=== PATIENT | female | born 1950 | race Caucasian/White ===

== ENCOUNTER 2016-12-22 05:56 | Inpatient (IN) | payer OTHER ==
[2016-12-21 10:50] VITALS: BMI 26.0
--- NOTE | 2016-12-21 18:03 | PREOPHP ---
DATE OF ADMISSION: 12/22/2016 HISTORY OF PRESENT ILLNESS: Ms. Mcneal is a 66-year-old female, 4, para 2, in menopause for m any years. She first came into the office on 10/19/2016 with her daughter. Daughter served as an i nterpreter, although does not speak good Hungarian. She complained of a uterine prolapse and a cystoc fariba that had been treated for many years with a rather large pessary. She could not use it anymore because the pessary would interfere with her daily life as well as creating chronic vaginitis and pe lvic pain. At that time, she was examined and found to have a large uterine prolapse and cystocele. She was counseled to have a total vaginal hysterectomy and anterior and posterior repair under gen eral anesthesia. This was done with the help of her daughter as an military cook. The alternatives t o this, the benefits from it, stopping the use of the pessary, the risks and complications of the pr ocedure were discussed including but not limited to hemorrhage, infection and pelvic organ injury du ring the procedure. She was allowed to ask questions and all her questions were answered to her sat isfaction, and she signed the appropriate surgical informed consent. She was seen for a second time preoperatively this week on 12/16/2016 and again the procedure was explained in detail through the same military cook and she signed the appropriate informed consent. She was made aware that there is a small possibility that the procedure could have complications and would end up with a total abdomi nal hysterectomy. PAST MEDICAL HISTORY: The patient had 4 pregnancies, 2 of which ended in normal vaginal deliveries. Her last menstrual period was at age 50. She denies any medical problems including cardiovascular disease, hypertension, diabetes and renal disease, liver disease, thyroid disease or neurological p roblems. ALLERGIES: NO KNOWN ALLERGIES. FAMILY HISTORY: Noncontributory. REVIEW OF SYSTEMS: A 12-point review of systems is noncontributory. PHYSICAL EXAMINATION: GENERAL: Well-developed and nourished, in no distress, alert and oriented x3 with a height 5 feet 9 inches and a weight of 170 pounds. BMI is 25.5. VITAL SIGNS: Showed the temperature to be 98, blood pressure 130/76, pulse is 78 per minute regular , respirations 16 per minute. HEENT: Within normal limits. Pupils are PERRLA. NECK: Supple. The thyroid is not palpable. There is no lymphadenopathy. BREASTS: Show no masses or lumps. LUNGS: Clear to percussion and auscultation. HEART: Normal sinus rhythm without a murmur. ABDOMEN: Soft. There is no organomegaly or hernias present. PELVIC: Normal external genitalia. There is a large prolapsed uterus with a normal cervix, large c ystocele grade III with preservation of the urethrovesical angle. There is a small rectocele presen t also. EXTREMITIES: Within normal limits. NEUROLOGIC: Also within normal limits. IMPRESSION: 1. Pelvic organ prolapse. 2. Uterine prolapse. 3. Cystocele, grade III. 4. Rectocele. PLAN: The patient is to be admitted for a total vaginal hysterectomy and possible bilateral salping o-oophorectomy, anterior and posterior repair tomorrow 12/22/2016. Dictated By: AVEL BROOKS MD CR/NTS Conf#: [id number] DID#: [id number] CC: PAM GODINEZ MD;*EndCC*
[~2016-12-22] VITALS: Ht 172.7 cm; Wt 78.5 kg
[2016-12-22] VITALS (26 sets, daily range): BP systolic 100–151; BP diastolic 50–81; PULSE 44–76; RESP 13–23; Ht 172.7 cm; Wt 78.5 kg
[2016-12-22] MEDS ORDERED: METO50TA16 PO (06:47)
[2016-12-22] MEDS ORDERED: HYD25 PO (06:47)
[2016-12-22] MEDS ORDERED: VASOPRESSIN 20 UNITS INJ ONE (06:49)
[2016-12-22] MEDS ORDERED: SODIUM CL BACTERIOSTATIC 30 ML INJ ONE (06:49)
[2016-12-22 06:58] LABS: ADD SCAN DIFF NO
[2016-12-22 07:00] LABS: BASOPHILS % 0.4 % (0.0-2.0); EOSINOPHILS # 0.2 10^3/ul (0.0-0.5); EOSINOPHILS % 3.2 % (0.0-7.0); HEMATOCRIT 37.8 % (37.0-47.0); HEMOGLOBIN 12.7 g/dl (12.0-16.0); LYMPHOCYTES # 2.2 10^3/ul (0.8-2.9); LYMPHOCYTES % 31.7 % (15.0-51.0); MEAN CORPUSCULAR HEMOGLOBIN 32.1 pg (29.0-33.0); MEAN CORPUSCULAR HGB CONC 33.6 g/dl (32.0-37.0); MEAN CORPUSCULAR VOLUME 95.5 fl (82.0-101.0); MEAN PLATELET VOLUME 10.9 fl (7.4-10.4); MONOCYTE # 0.5 10^3/ul (0.3-0.9); MONOCYTES % 7.3 % (0.0-11.0); NEUTROPHIL # 3.9 10^3/ul (1.6-7.5); NEUTROPHILS % 57.3 % (39.0-77.0); PLATELET COUNT 279 10^3/UL (140-415); RED BLOOD COUNT 3.96 10^6/ul (4.20-5.40); RED CELL DISTRIBUTION WIDTH 12.4 % (11.5-14.5); WHITE BLOOD COUNT 6.9 10^3/ul (4.8-10.8)
[2016-12-22] MEDS ORDERED: BUPIVACAINE 0.25%/EPI (SDV) 30 ML INJ ONE (07:21)
[2016-12-22 07:24] LABS: ALBUMIN 4.7 g/dl (3.3-4.9); ALBUMIN/GLOBULIN RATIO 1.62; BILIRUBIN,INDIRECT 0.5 mg/dl (0-1.1); BILIRUBIN,TOTAL 0.5 mg/dl (0.2-1.3); CALCIUM 9.9 mg/dl (8.4-10.2); CREATININE 0.72 mg/dl (0.44-1.00); POTASSIUM 3.7 mmol/L (3.5-5.1); TOTAL PROTEIN 7.6 g/dl (6.1-8.1)
[2016-12-22 07:27] LABS: PROTIME 13.2 Sec (12.2-14.2)
[2016-12-22 07:28] LABS: PARTIAL THROMBOPLASTIN TIME 26.4 Sec (25.0-35.0)
[2016-12-22] MEDS ORDERED: MIDAZOLAM 1 MG/ML 2 ML INJ ONE (07:42)
[2016-12-22] MEDS ORDERED: morphine SULFATE/PF (10 MG/10 ML) INJ ONE (07:47)
[2016-12-22] MEDS ORDERED: ROCURONIUM 50 MG INJ ONE (07:59)
[2016-12-22] MEDS ORDERED: CEFAZOLIN 1 GM INJ ONE (07:59)
[2016-12-22] MEDS ORDERED: PROPOFOL 20 ML ONE (07:59)
[2016-12-22] MEDS ORDERED: morphine 2 MG INJ IV PRN (08:30)
[2016-12-22] MEDS ORDERED: NALOXONE (0.4 MG/ML) INJ IV PRN (08:30)
[2016-12-22] MEDS ORDERED: HYDROCODONE/APAP (5/325) TAB PO PRN (08:30)
[2016-12-22] MEDS ORDERED: morphine 4 MG/ML VIAL IV PRN (08:30)
[2016-12-22] MEDS ORDERED: ACETAMINOPHEN 500 MG TAB PO PRN (08:30)
[2016-12-22] MEDS ORDERED: NALBUPHINE HCL (10 MG/1 ML) INJ IV PRN (08:30)
[2016-12-22] MEDS ORDERED: DIPHENHYDRAMINE 50 MG INJ IV PRN (08:30)
[2016-12-22] MEDS ORDERED: ONDANSETRON 4 MG INJ IV PRN ×2 (08:30→10:00)
[2016-12-22] MEDS ORDERED: FENTAnyl 50 MCG/ML VIAL ONE (08:30)
[2016-12-22] MEDS ORDERED: HYDROmorphONE 1 MG/ML SYG IV PRN ×2 (08:30)
[2016-12-22] MEDS ORDERED: KETOROLAC 30 MG INJ IV PRN ×2 (08:30→10:00)
[2016-12-22] MEDS ORDERED: KETOROLAC 30 MG INJ ONE (09:31)
[2016-12-22] MEDS ORDERED: ONDANSETRON 4 MG INJ ONE (09:31)
[2016-12-22] MEDS ORDERED: GLYCOPYRROLATE 1 MG INJ ONE (09:31)
[2016-12-22] MEDS ORDERED: NEOSTIGMINE 3 MG/3 ML SYRINGE ONE (09:31)
[2016-12-22] MEDS ORDERED: METOCLOPRAMIDE 10 MG INJ ONE (09:31)
[2016-12-22] MEDS ORDERED: DEXAMETHASONE 4 MG/ML 1 ML INJ ONE (09:31)
[2016-12-22] MEDS ORDERED: ACETAMINOPHEN 325 MG TAB PO PRN (10:00)
[2016-12-22] MEDS ORDERED: OXYCODONE/ACETAMINOPHEN (5/325) TAB PO PRN (10:00)
[2016-12-22] MEDS ORDERED: IBUPROFEN 600 MG TAB PO PRN (10:00)
--- NOTE | 2016-12-22 10:58 | OPR ---
DATE OF OPERATION: 12/22/2016 PREOPERATIVE DIAGNOSES: 1. Pelvic organ prolapse. 2. Uterine prolapse. 3. Cystocele grade III. 4. Small rectocele. POSTOPERATIVE DIAGNOSES: 1. Pelvic organ prolapse. 2. Uterine prolapse. 3. Cystocele grade III. 4. Small rectocele. OPERATION PERFORMED: Total vaginal hysterectomy, anterior repair. SURGEON: Avel Berumen MD. CONDUCTOR PULLMAN: Dr. Pam Justin ANESTHESIA: Spinal and general. ANESTHESIOLOGIST: Dr. Luna ESTIMATED BLOOD LOSS: Less than 100 mL. COMPLICATIONS: None. SPECIMENS: Uterus was sent to pathology. PROCEDURE AND FINDINGS: With the patient under general anesthesia and after spinal anesthesia, she was laid on the table in the dorsal lithotomy position. The abdomen was prepped with ChloraPrep and the perineum and vagina with Betadine. She was draped in the usual sterile fashion after 3 minutes. A weighted posterior retractor was placed in posterior vaginal wall and the anterior lip of the cervix grasped with a Terra clamp. A large cystocele present. There was inflammatory granulation tissue and the posterior fornix of the vagina, probably from the prolonged use of pessaries. The vaginal mucosa was infiltrated with 0.25% Marcaine with epinephrine, a total of 20 mL. Then it was opened circumferentially around the cervix. The endopelvic fascia was also opened circumferentially now with scissors. The posterior cul-de-sac of Lucio was entered. The weighted retractor was advanced. Uterosacral ligament on the right side was then clamped with a Terra clamp, cut and sutured with 0 Vicryl. The cardinal ligament was identified, clamped, and then cut and sutured with 0 Vicryl. The same was done on the contralateral side. The anterior peritoneum was entered and a right angle retractor was advanced into it. A very small fundus of the uterus was found with no pathology. The uterine pedicles were identified, clamped bilaterally with Wayne clamps, cut and sutured with 0 Vicryl. The upper pedicles consisted of the upper part of the broad ligament, the uterine ovarian ligament, the round ligament and the tube were then clamped with Wayne clamps bilaterally and the specimen was then removed. The upper pedicles were secured with 2 sutures of 0 Vicryl on either side. Good hemostasis was obtained. Pelvis was explored and the ovaries were found to be normal, atrophic and were left in situ. The peritoneum was closed with a pursestring of double 0 chromic catgut. This was done high in the cul-de -sac in order to avoid a future enterocele. Both uterosacral ligaments were then tied in the center for the same purpose. Then, the anterior repair was started by opening up the anterior vaginal mucosa in an inverted T fashion. The endopelvic fascia was dissected away from the mucosa. This was carried out to the urethrovesical angle,that was left intact. The cystocele was then reduced with several pursestring sutures of 0 Vicryl. The excessive vaginal mucosa was trimmed. Then, the mucosa was closed with a continuous running stitch of double 0 Vicryl. Good hemostasis was observed. The vagina was profusely washed with warm water. There was no active bleeding. All the instruments were then removed from the patient's vagina. Needle, sponge and instrument count at the end of the procedure was correct twice. The patient withstood the procedure well and was taken to recovery room. All vital signs stable. EBL was less 100 mL. Dictated By: AVEL FRANCOIS/JASWINDER Conf#: [id number] DID#: [id number] CC: PAM JUSTIN MD;*EndCC* MTDD
[2016-12-22] MEDS: LACTATED RINGER'S 1,000 ML IV SCH ×2 (12:21→22:36)
[2016-12-22 13:57] LABS: ADD UMIC NO; URINE BILIRUBIN (Dip) NEGATIVE (NEGATIVE); URINE BLOOD (Dip) NEGATIVE (NEGATIVE); URINE COLOR LT. YELLOW (YELLOW); URINE GLUCOSE (Dip) NEGATIVE (NEGATIVE); URINE KETONES (Dip) NEGATIVE (NEGATIVE); URINE LEUKOCYTE ESTERASE (Dip) NEGATIVE (NEGATIVE); URINE NITRITE (Dip) NEGATIVE (NEGATIVE); URINE TOTAL PROTEIN (Dip) NEGATIVE (NEGATIVE); URINE UROBILINOGEN (Dip) 0.2 E.U./dL (0.1-1.0)
[2016-12-22 14:01] LABS: ADD SCAN DIFF NO
[2016-12-22 14:02] LABS: BASOPHIL # 0.1 10^3/ul (0.0-0.1); BASOPHILS % 0.3 % (0.0-2.0); EOSINOPHILS % 0.1 % (0.0-7.0); HEMATOCRIT 38.2 % (37.0-47.0); HEMOGLOBIN 12.5 g/dl (12.0-16.0); LYMPHOCYTES # 1.1 10^3/ul (0.8-2.9); LYMPHOCYTES % 7.8 % (15.0-51.0); MEAN CORPUSCULAR HEMOGLOBIN 32.1 pg (29.0-33.0); MEAN CORPUSCULAR HGB CONC 32.7 g/dl (32.0-37.0); MEAN CORPUSCULAR VOLUME 97.9 fl (82.0-101.0); MEAN PLATELET VOLUME 10.2 fl (7.4-10.4); MONOCYTE # 0.2 10^3/ul (0.3-0.9); MONOCYTES % 1.5 % (0.0-11.0); PLATELET COUNT 272 10^3/UL (140-415); RED CELL DISTRIBUTION WIDTH 12.5 % (11.5-14.5); WHITE BLOOD COUNT 14.4 10^3/ul (4.8-10.8)
[2016-12-22] MEDS: CEFAZOLIN 2 GM/50 ML (PMX) 50 ML IVPB SCH ×2 (14:15→23:08)
[2016-12-22 14:54] LABS: ALANINE AMINOTRANSFERASE 31 IU/L (13-69); ALBUMIN 4.6 g/dl (3.3-4.9); ALBUMIN/GLOBULIN RATIO 1.84; ALKALINE PHOSPHATASE 76 IU/L (42-121); ANION GAP 9 (8-16); ASPARTATE AMINO TRANSFERASE 22 IU/L (15-46); BILIRUBIN,INDIRECT 0.4 mg/dl (0-1.1); BILIRUBIN,TOTAL 0.4 mg/dl (0.2-1.3); BLOOD UREA NITROGEN 11 mg/dl (7-20); CALCIUM 9.5 mg/dl (8.4-10.2); CARBON DIOXIDE 30 mmol/L (21-31); CHLORIDE 111 mmol/L (97-110); CREATININE 0.69 mg/dl (0.44-1.00); GLUCOSE 125 mg/dl (70-220); MAGNESIUM 1.8 mg/dl (1.7-2.5); PHOSPHORUS 4.1 mg/dl (2.5-4.9); SODIUM 145 mmol/L (135-144); TOTAL PROTEIN 7.1 g/dl (6.1-8.1)
[2016-12-22 14:58] LABS: TROPONIN-I < 0.012 ng/ml (0.00-0.12)
[2016-12-22 15:31] LABS: T3 UPTAKE 32.2 % (23.5-40.5)
--- NOTE | 2016-12-22 17:46 | RADRPT ---
Vent Rate: 45 bpm RR Interval: 0 msec OK Interval: 216 msec QRS Duration: 92 msec QT Interval: 500 msec QTC Interval: 432 msec P-R-T [place]: 49 - 32 - 65 degrees Marked sinus bradycardia with 1st degree AV block Abnormal ECG Electronically Signed By: Juanito Lew [id number]
--- NOTE | 2016-12-22 19:06 | PN ---
Date/Time of Note Date/Time of Note DATE: 12/22/16 TIME: 19:04 Assessment/Plan VTE Prophylaxis VTE Prophylaxis Intervention: other Lines/Catheters IV Catheter Type (from [facility]): Saline Lock Urinary Cath still in place: Yes Reason Cath still needed: other (indicate) Assessment/Plan Chief Complaint/Hosp Course [id number] a/p bradycardia s/p vaginal hysterectomy plan per order Problems: Subjective 24 Hr Interval Summary ENT: no complaints Respiratory: no complaints Cardiovascular: no complaints Gastrointestinal: no complaints Genitourinary: no complaints Skin: no complaints Exam/Review of Systems Vital Signs Vitals Vital Signs Date Time Temp Pulse Resp B/P Pulse Ox O2 Delivery O2 Flow Rate FiO2 12/22/16 16:00 59 12/22/16 15:13 Nasal Cannula 2.0 12/22/16 14:15 18 122/81 98 12/22/16 11:30 97.8 Exam Eyes: nl conjunctiva ENMT: nl external ears & nose Neck: supple Cardiovascular: regular rate and rhythm Gastrointestinal: bowel sounds, soft Musculoskeletal: nl extremities to inspection Extremities: normal pulses Results Result Diagram: 12/22/16 1355 12/22/16 1355 Results 24 hrs Laboratory Tests Test 12/22/16 06:25 12/22/16 09:48 12/22/16 13:55 White Blood Count 6.9 14.4 #H Red Blood Count 3.96 L 3.90 L Hemoglobin 12.7 12.5 Hematocrit 37.8 38.2 Mean Corpuscular Volume 95.5 97.9 Mean Corpuscular Hemoglobin 32.1 32.1 Mean Corpuscular Hemoglobin Concent 33.6 32.7 Red Cell Distribution Width 12.4 12.5 Platelet Count 279 272 Mean Platelet Volume 10.9 H 10.2 Neutrophils % 57.3 90.0 H Lymphocytes % 31.7 7.8 L Monocytes % 7.3 1.5 Eosinophils % 3.2 0.1 Basophils % 0.4 0.3 Nucleated Red Blood Cells % 0.0 0.0 Neutrophils # 3.9 13.0 H Lymphocytes # 2.2 1.1 Monocytes # 0.5 0.2 L Eosinophils # 0.2 0.0 Basophils # 0.0 0.1 Nucleated Red Blood Cells # 0.0 0.0 Prothrombin Time 13.2 Prothrombin Time Ratio 1.0 INR International Normalized Ratio 1.00 Activated Partial Thromboplast Time 26.4 Sodium Level 139 145 H Potassium Level 3.7 5.0 Chloride Level 107 111 H Carbon Dioxide Level 26 30 Anion Gap 10 9 Blood Urea Nitrogen 11 11 Creatinine 0.72 0.69 Glucose Level 97 125 Calcium Level 9.9 9.5 Total Bilirubin 0.5 0.4 Direct Bilirubin 0.00 0.00 Indirect Bilirubin 0.5 0.4 Aspartate Amino Transf (AST/SGOT) 22 22 Alanine Aminotransferase (ALT/SGPT) 32 31 Alkaline Phosphatase 79 76 Total Protein 7.6 7.1 Albumin 4.7 4.6 Globulin 2.90 2.50 Albumin/Globulin Ratio 1.62 1.84 Urine Color LT. YELLOW Urine Clarity CLEAR Urine pH 6.0 Urine Specific [place] <=1.005 L Urine Ketones NEGATIVE Urine Nitrite NEGATIVE Urine Bilirubin NEGATIVE Urine Urobilinogen 0.2 E.U./dL Urine Leukocyte Esterase NEGATIVE Urine Hemoglobin NEGATIVE Urine Glucose NEGATIVE Urine Total Protein NEGATIVE Phosphorus Level 4.1 Magnesium Level 1.8 Troponin I < 0.012 Free Thyroxine Index 2.32 Thyroxine (T4) 7.2 Triiodothyronine (T3) Uptake 32.2 Medications Medications Current Medications Hydromorphone HCl (Dilaudid) 0.2 mg Q2H PRN IV PAIN LEVEL 1-5; Start 12/22/16 at 08:30; Stop 12/23/16 at 07:32 Hydromorphone HCl (Dilaudid) 0.4 mg Q2H PRN IV PAIN LEVEL 6-10 Last administered on 12/22/16 09:58; Admin Dose 0.4 MG; Start 12/22/16 at 08:30; Stop 12/23/16 at 07:32 Morphine Sulfate (morphine) 2 mg Q2H PRN IV PAIN LEVEL 1-5; Start 12/22/16 at 08 :30; Stop 12/23/16 at 07:32 Morphine Sulfate (morphine) 4 mg Q2H PRN IV PAIN LEVEL 6-10; Start 12/22/16 at 08:30; Stop 12/23/16 at 07:32 Ketorolac Tromethamine (Toradol) 30 mg Q6H PRN IV PAIN LEVEL 6-10 Last administered on 12/22/16 09:57; Admin Dose 30 MG; Start 12/22/16 at 08:30; Stop 12/23/16 at 07:32 Acetaminophen (Tylenol Tab) 500 mg Q4H PRN PO PAIN LEVEL 1-3; Start 12/22/16 at 08:30; Stop 12/23/16 at 07:32 Acetaminophen/ Hydrocodone Bitart ([place] (5/325)) 1 tab Q4H PRN PO PAIN LEVEL 4 -6; Start 12/22/16 at 08:30; Stop 12/23/16 at 07:32 Diphenhydramine HCl (Benadryl) 25 mg Q4H PRN IV PRURITUS; Start 12/22/16 at 08: 30; Stop 12/23/16 at 07:32 Nalbuphine HCl (Nubain) 10 mg Q4H PRN IV PRURITUS; Start 12/22/16 at 08:30; Stop 12/23/16 at 07:32 Ondansetron HCl (Zofran Inj) 4 mg Q6H PRN IV NAUSEA AND/OR VOMITING; Start 12/22 at 08:30; Stop 12/23/16 at 07:32 Naloxone HCl 0.2 mg 0.2 mg Q2M PRN IV FOR RESP RATE 8 OR LESS; Start 12/22/16 at 08:30; Stop 12/23/16 at 07:32 Lactated Ringer's 1,000 ml @ 100 mls/hr Q10H IV Last administered on 12/22/16 12:21; Admin Dose 100 MLS/HR; Start 12/22/16 at 09:38 Cefazolin Sodium/ Dextrose (Ancef 2 Gm/50 ml (Pmx)) 50 ml @ 100 mls/hr Q8 IVPB Last administered on 12/22/16 14:15; Admin Dose 100 MLS/HR; Start 12/22/16 at 14:00; Stop 12/23/16 at 06:29 Acetaminophen (Tylenol Tab) 650 mg Q4H PRN PO PAIN LEVEL 1-5; Start 12/22/16 at 10:00 Oxycodone/ Acetaminophen (Percocet (5/ 325)) 1 tab Q4H PRN PO PAIN LEVEL 6-10; Start 12/22/16 at 10:00 Ondansetron HCl (Zofran Inj) 4 mg Q6H PRN IV NAUSEA AND/OR VOMITING; Start 12/22 at 10:00 Oxycodone/ Acetaminophen (Percocet (5/ 325)) 2 tab Q4H PRN PO PAIN; Start at 10:00 Pantoprazole (Protonix Iv) 40 mg DAILY@06 IV ; Start 12/23/16 at 06:00 Ketorolac Tromethamine (Toradol) 30 mg Q6H PRN IV PAIN; Start 12/22/16 at 10:00 ; Stop 12/25/16 at 09:59 Ibuprofen (Motrin) 600 mg Q8H PRN PO PAIN AND OR ELEVATED TEMP; Start 12/23/16 at 08:00 MADELYN GRANDE MD Dec 22, 2016 19:06
--- NOTE | 2016-12-22 19:43 | CONS ---
DATE OF ADMISSION: 12/22/2016 DATE OF CONSULTATION: Thank you, Dr. Berumen, for kindly asking me to see this patient in consultation. HISTORY OF PRESENT ILLNESS: The patient is a 66-year-old female who is 4, para 2, in menopause for many years. The patient has pelvic organ prolapse, uterine prolapse, cystocele grade III, rectocele, underwent total vaginal hysterectomy and possible bilateral salpingo-oophorectomy and anterior and posterior repair. The patient noted to have post-surgery bradycardia, so internal medicine consultation is obtained. The patient has EKG, shows currently that the patient has sinus bradycardia, first-degree AV block, heart rate 45. The patient is asymptomatic. PAST MEDICAL HISTORY: The patient has a history of hypertension, history of status post vaginal hysterectomy. ALLERGY HISTORY: NEGATIVE. FAMILY HISTORY: Per patient, negative. SOCIAL HISTORY: Per patient, negative. MEDICATIONS LISTED AT HOME: 1. Hydrochlorothiazide. 2. Metoprolol 50 mg daily. The patient has been taking intermittently. REVIEW OF SYSTEMS: HEENT: Unremarkable. RESPIRATORY: Unremarkable. CARDIOVASCULAR: Unremarkable. ABDOMEN: Abdominal pain. EXTREMITIES: Unremarkable. GENITOURINARY: Unremarkable. MUSCULOSKELETAL: Unremarkable. PHYSICAL EXAMINATION: GENERAL: The patient is awake and alert. VITAL SIGNS: Pulse 59, blood pressure 122/81. HEAD: Atraumatic, normocephalic. EYES: Pupils equal, reactive to light. NECK: Supple. No JVD. LUNGS: Clear. CARDIOVASCULAR: S1, S2 are normal. ABDOMEN: Soft, nontender. Bowel sounds positive. Tenderness in the abdominal area. The patient has surgical scar on the abdominal area. EXTREMITIES: There is no cyanosis, clubbing, edema. CENTRAL NERVOUS SYSTEM: The patient is awake, alert. No focal deficit. LABORATORY DATA: WBC 14.4, hematocrit 38.2, platelet count of 272. Potassium _ sodium 145. IMPRESSION: 1. The patient is status post total vaginal hysterectomy. 2. The patient has sinus bradycardia. 3. The patient has leukocytosis. 4. Rule out underlying hypothyroidism. PLAN: Give this patient IV fluid, telemetry monitoring, 2D echo, thyroid panel. Thank you, Dr. Edson Berumen, for kindly asking me to see this patient in medicine consultation. Dictated By: MADELYN MARTINEZ/JASWINDER Conf#: [id number] DID#: [id number] MTDD
--- NOTE | 2016-12-22 20:18 | RADRPT ---
Echocardiogram Report Patient Name: ARLETTE OSORIO Gender: Female Date: 1950 Study Date: 22-Dec-2016 Planer Operator: Henrique [facility] Location: 412-A Ref. Physician: MADELYN GRANDE Quality: Adequate Procedures: Transthoracic echocardiogram with complete 2D, M-Mode, and doppler examination. Indications: HR 44/MIN. 2D/M Mode Doppler Measurement Value Normal Ranges Measurement Value Normal Ranges LVIDd 2D 4.7 3.5 - 5.6 cm AV Peak Heilo 1.2 m/sec LVIDs 2D 3.0 2.1 - 4.1 cm AV Peak PG 6.1 mmHg LVPWd 2D 1.1 0.6 - 1.1 cm LVOT Peak Helio 1.2 m/sec IVSd 2D 1.1 0.6 - 1.1 cm LVOT Peak PG 5.8 mmHg AoR Diam 2D 2.6 2.0 - 3.7 cm MV E Peak Helio 0.9 m/sec EDV 2D 102.6 cm3 MV A Peak Helio 0.7 m/sec ESV 2D 27.6 cm3 MV E/A 1.2 LA Dimen 2D 3.8 2.3 - 4.0 cm MV Decel Time 288 msec MV Decel [place] 3 MV E/A 1.2 Findings Left Ventricle: Normal left ventricular systolic function. Normal left ventricular cavity size. Left ventricular wall thickness upper limits of normal. Ejection fraction is visually estimated at 5560 %. Tissue Doppler/Mitral Doppler indices are consistent with impaired relaxation (Stage I diastolic dysfunction). Right Ventricle: Normal right ventricular size. Normal right ventricular systolic function. Left Atrium: The left atrium is normal in size. Right Atrium: The right atrium is normal in size. Mitral Valve: Normal appearance of the mitral valve. Trace mitral regurgitation. Aortic Valve: Normal appearance of the aortic valve. No significant aortic stenosis or insufficiency. Tricuspid Valve: Normal appearance and function of the tricuspid valve with trace physiologic regurgitation. Pulmonic Valve: Pulmonic valve not well visualized. There is trace pulmonic regurgitation. Pericardium: Normal pericardium with no significant pericardial effusion. Aorta: Normal aortic root. IVC: Normal size and normal respiratory collapse consistent with normal right atrial pressure. Conclusions 1.Normal left ventricular systolic function. Normal left ventricular cavity size. Left ventricular wall thickness upper limits of normal. Ejection fraction is visually estimated at 55-60 %. Tissue Doppler/Mitral Doppler indices are consistent with impaired relaxation (Stage I diastolic dysfunction). 2.Normal appearance of the mitral valve. Trace mitral regurgitation. 3.Normal appearance and function of the tricuspid valve with trace physiologic regurgitation. 4.Pulmonic valve not well visualized. There is trace pulmonic regurgitation. Electronically Signed By: Houston Iyer 22-Dec-2016 20:17:38 -0700 Patient Name: ARLETTE OSORIO Study Date: 22-Dec-2016 [id number]
[2016-12-23] VITALS (10 sets, daily range): BP systolic 123–142; BP diastolic 61–67; PULSE 57–66; RESP 16–20
[2016-12-23] MEDS: LACTATED RINGER'S 1,000 ML IV SCH ×2 (05:38→12:30)
[2016-12-23] MEDS: PANTOPRAZOLE 40 MG INJ IV SCH ×2 (05:48→06:38)
[2016-12-23] MEDS: CEFAZOLIN 2 GM/50 ML (PMX) 50 ML IVPB SCH (06:37)
[2016-12-23 06:54] LABS: ADD SCAN DIFF NO
[2016-12-23 06:59] LABS: BASOPHILS % 0.2 % (0.0-2.0); EOSINOPHILS % 0.2 % (0.0-7.0); HEMATOCRIT 34.2 % (37.0-47.0); HEMOGLOBIN 11.1 g/dl (12.0-16.0); LYMPHOCYTES # 2.5 10^3/ul (0.8-2.9); MEAN CORPUSCULAR HEMOGLOBIN 31.6 pg (29.0-33.0); MEAN CORPUSCULAR HGB CONC 32.5 g/dl (32.0-37.0); MEAN CORPUSCULAR VOLUME 97.4 fl (82.0-101.0); MEAN PLATELET VOLUME 10.9 fl (7.4-10.4); MONOCYTE # 0.8 10^3/ul (0.3-0.9); MONOCYTES % 5.9 % (0.0-11.0); NEUTROPHIL # 9.8 10^3/ul (1.6-7.5); NEUTROPHILS % 74.2 % (39.0-77.0); PLATELET COUNT 256 10^3/UL (140-415); RED BLOOD COUNT 3.51 10^6/ul (4.20-5.40); RED CELL DISTRIBUTION WIDTH 12.6 % (11.5-14.5); WHITE BLOOD COUNT 13.2 10^3/ul (4.8-10.8)
[2016-12-23 07:45] LABS: CREATININE 0.7 mg/dl (0.44-1.00); POTASSIUM 4.2 mmol/L (3.5-5.1)
[2016-12-23] MEDS ORDERED: IBUPROFEN 600 MG TAB PO PRN (08:00)
--- NOTE | 2016-12-23 08:46 | PN ---
Date/Time of Note Date/Time of Note DATE: 12/23/16 TIME: 08:34 Assessment/Plan VTE Prophylaxis VTE Prophylaxis Intervention: ambulation, anti-embolic stocking Lines/Catheters IV Catheter Type (from [facility]): Peripheral IV Urinary Cath still in place: Yes Assessment/Plan Chief Complaint/Hosp Course Doing well this morning.Normal sinus rhythm Problems: Assessment/Plan Improving.No vaginal bleeding.WBBC trending down. Cont'd Hospitalization Reason: Ambulate.Consultation with geopolitics teacher to see if she can be safely dischar Exam/Review of Systems Vital Signs Vitals Vital Signs Date Time Temp Pulse Resp B/P Pulse Ox O2 Delivery O2 Flow Rate FiO2 12/23/16 08:00 62 12/23/16 07:41 98.3 18 124/62 99 12/22/16 20:43 Nasal Cannula 2.0 Intake and Output 12/22/16 12/22/16 12/23/16 15:00 23:00 07:00 Intake Total 1100 ml 1500 ml 700 ml Output Total 400 ml 1000 ml 350 ml Balance 700 ml 500 ml 350 ml Results Result Diagram: 12/23/16 0550 12/23/16 0550 Results 24 hrs Laboratory Tests Test 12/22/16 09:48 12/22/16 13:55 12/23/16 05:50 Urine Color LT. YELLOW Urine Clarity CLEAR Urine pH 6.0 Urine Specific [place] <=1.005 L Urine Ketones NEGATIVE Urine Nitrite NEGATIVE Urine Bilirubin NEGATIVE Urine Urobilinogen 0.2 E.U./dL Urine Leukocyte Esterase NEGATIVE Urine Hemoglobin NEGATIVE Urine Glucose NEGATIVE Urine Total Protein NEGATIVE White Blood Count 14.4 #H 13.2 H Red Blood Count 3.90 L 3.51 L Hemoglobin 12.5 11.1 L Hematocrit 38.2 34.2 L Mean Corpuscular Volume 97.9 97.4 Mean Corpuscular Hemoglobin 32.1 31.6 Mean Corpuscular Hemoglobin Concent 32.7 32.5 Red Cell Distribution Width 12.5 12.6 Platelet Count 272 256 Mean Platelet Volume 10.2 10.9 H Neutrophils % 90.0 H 74.2 Lymphocytes % 7.8 L 19.0 Monocytes % 1.5 5.9 Eosinophils % 0.1 0.2 Basophils % 0.3 0.2 Nucleated Red Blood Cells % 0.0 0.0 Neutrophils # 13.0 H 9.8 H Lymphocytes # 1.1 2.5 Monocytes # 0.2 L 0.8 Eosinophils # 0.0 0.0 Basophils # 0.1 0.0 Nucleated Red Blood Cells # 0.0 0.0 Sodium Level 145 H 140 Potassium Level 5.0 4.2 Chloride Level 111 H 103 Carbon Dioxide Level 30 28 Anion Gap 9 13 Blood Urea Nitrogen 11 10 Creatinine 0.69 0.70 Glucose Level 125 86 Calcium Level 9.5 9.0 Phosphorus Level 4.1 Magnesium Level 1.8 Total Bilirubin 0.4 Direct Bilirubin 0.00 Indirect Bilirubin 0.4 Aspartate Amino Transf (AST/SGOT) 22 Alanine Aminotransferase (ALT/SGPT) 31 Alkaline Phosphatase 76 Troponin I < 0.012 Total Protein 7.1 Albumin 4.6 Globulin 2.50 Albumin/Globulin Ratio 1.84 Free Thyroxine Index 2.32 Thyroxine (T4) 7.2 Triiodothyronine (T3) Uptake 32.2 Medications Medications Current Medications Lactated Ringer's (Lr) 1,000 ml @ 100 mls/hr Q10H IV Last administered on 22:36; Admin Dose 100 MLS/HR; Start 12/22/16 at 09:38 Acetaminophen (Tylenol Tab) 650 mg Q4H PRN PO PAIN LEVEL 1-5; Start 12/22/16 at 10:00 Oxycodone/ Acetaminophen (Percocet (5/ 325)) 1 tab Q4H PRN PO PAIN LEVEL 6-10; Start 12/22/16 at 10:00 Ondansetron HCl (Zofran Inj) 4 mg Q6H PRN IV NAUSEA AND/OR VOMITING; Start 12/22 at 10:00 Oxycodone/ Acetaminophen (Percocet (5/ 325)) 2 tab Q4H PRN PO PAIN; Start at 10:00 Pantoprazole (Protonix Iv) 40 mg DAILY@06 IV Last administered on 12/23/16 06: 38; Admin Dose 40 MG; Start 12/23/16 at 06:00 Ketorolac Tromethamine (Toradol) 30 mg Q6H PRN IV PAIN; Start 12/22/16 at 10:00 ; Stop 12/25/16 at 09:59 Ibuprofen (Motrin) 600 mg Q8H PRN PO PAIN AND OR ELEVATED TEMP; Start 12/23/16 at 08:00 AVEL BROOKS MD Dec 23, 2016 08:38
[2016-12-23] MEDS ORDERED: ENOXAPARIN 40 MG/0.4 ML SYG SC SCH (09:00)
[2016-12-23] MEDS: OXYCODONE/ACETAMINOPHEN (5/325) TAB PO PRN ×2 (09:16→17:46)
--- NOTE | 2016-12-23 15:26 | CONS ---
Date/Time of Note Date/Time of Note DATE: 12/23/16 TIME: 15:24 Assessment/Plan Assessment/Plan Chief Complaint/Hosp Course 1. The patient is status post total vaginal hysterectomy. 2. The patient has sinus bradycardia. 3. The patient has leukocytosis. 4. Rule out underlying hypothyroidism. Problems: Additional Assessment/Plan 1. kidney function optimization Consultation Date/Type/Reason Admit Date/Time Dec 22, 2016 at 10:11 Initial Consult Date 12/22/2016 Type of Consultation: Nephrology Reason for Consultation Dr Jarquin Exam/Review of Systems Vital Signs Vitals Vital Signs Date Time Temp Pulse Resp B/P Pulse Ox O2 Delivery O2 Flow Rate FiO2 12/23/16 12:00 57 12/23/16 11:20 98.3 16 123/65 98 12/23/16 08:38 Nasal Cannula 2.0 Intake and Output 12/22/16 12/22/16 12/23/16 15:00 23:00 07:00 Intake Total 1100 ml 1900 ml 700 ml Output Total 400 ml 1000 ml 350 ml Balance 700 ml 900 ml 350 ml Exam Constitutional: alert, oriented Neck: supple Respiratory: clear to auscultation Cardiovascular: regular rate and rhythm Results Result Diagram: 12/23/16 0550 12/23/16 0550 Results 24 hrs Laboratory Tests Test 12/23/16 05:50 White Blood Count 13.2 H Red Blood Count 3.51 L Hemoglobin 11.1 L Hematocrit 34.2 L Mean Corpuscular Volume 97.4 Mean Corpuscular Hemoglobin 31.6 Mean Corpuscular Hemoglobin Concent 32.5 Red Cell Distribution Width 12.6 Platelet Count 256 Mean Platelet Volume 10.9 H Neutrophils % 74.2 Lymphocytes % 19.0 Monocytes % 5.9 Eosinophils % 0.2 Basophils % 0.2 Nucleated Red Blood Cells % 0.0 Neutrophils # 9.8 H Lymphocytes # 2.5 Monocytes # 0.8 Eosinophils # 0.0 Basophils # 0.0 Nucleated Red Blood Cells # 0.0 Sodium Level 140 Potassium Level 4.2 Chloride Level 103 Carbon Dioxide Level 28 Anion Gap 13 Blood Urea Nitrogen 10 Creatinine 0.70 Glucose Level 86 Calcium Level 9.0 Medications Medications Current Medications Lactated Ringer's (Lr) 1,000 ml @ 100 mls/hr Q10H IV Last administered on t 12:30; Admin Dose 100 MLS/HR; Start 12/22/16 at 09:38 Acetaminophen (Tylenol Tab) 650 mg Q4H PRN PO PAIN LEVEL 1-5; Start 12/22/16 at 10:00 Oxycodone/ Acetaminophen (Percocet (5/ 325)) 1 tab Q4H PRN PO PAIN LEVEL 6-10 Last administered on 12/23/16 09:16; Admin Dose 1 TAB; Start 12/22/16 at 10:00 Ondansetron HCl (Zofran Inj) 4 mg Q6H PRN IV NAUSEA AND/OR VOMITING; Start 12/22 at 10:00 Oxycodone/ Acetaminophen (Percocet (5/ 325)) 2 tab Q4H PRN PO PAIN; Start at 10:00 Pantoprazole (Protonix Iv) 40 mg DAILY@06 IV Last administered on 12/23/16 06: 38; Admin Dose 40 MG; Start 12/23/16 at 06:00 Ketorolac Tromethamine (Toradol) 30 mg Q6H PRN IV PAIN; Start 12/22/16 at 10:00 ; Stop 12/25/16 at 09:59 Ibuprofen (Motrin) 600 mg Q8H PRN PO PAIN AND OR ELEVATED TEMP; Start 12/23/16 at 08:00 Enoxaparin Sodium (Lovenox) 40 mg DAILY SC Last administered on 12/23/16 09:14 ; Admin Dose 40 MG; Start 12/23/16 at 09:00 TASNEEM LENTZ Dec 23, 2016 15:26
--- NOTE | 2016-12-23 15:33 | CONS ---
DATE OF ADMISSION: 12/22/2016 DATE OF CONSULTATION: 12/23/2016 REASON FOR CONSULTATION: Bradycardia. REQUESTING PHYSICIAN: Dr. Heriberto Grande and Dr. Edson Berumen. HISTORY OF PRESENT ILLNESS: Ms. Mcneal is a 66-year-old female G4, P2, menopausal for multiple years , who was found to have uterine prolapse and a cystocele. She presented for and underwent a total v aginal hysterectomy and anterior repair. Postoperatively, the patient was admitted to the floor and was noted to have bradycardia as low as 40s with stable blood pressure. At that time, the patient was on beta barbara which has been held for some improvement in heart rate. Given bradycardia, card iology consultation was requested. The patient at this time denies chest pain, shortness of breath, syncope and dizziness. PAST MEDICAL HISTORY: As above in HPI with the patient having a history of hypertension. MEDICATIONS PRIOR TO ADMISSION: 1. Toprol-XL 50 mg daily. 2. Hydrochlorothiazide 25 mg daily. MEDICATIONS CURRENTLY IN HOSPITAL: 1. Lovenox ___ mg subcutaneous daily. 2. Ibuprofen 600 mg p.r.n. 3. Protonix 20 mg IV daily. 4. Tylenol p.r.n. 5. Percocet p.r.n. 6. Zofran p.r.n. 7. Toradol p.r.n. 8. IV fluid hydration. ALLERGIES: NO KNOWN DRUG ALLERGIES. SOCIAL HISTORY: No tobacco, ETOH or illicit drug use. FAMILY HISTORY: No history of sudden cardiac or early CAD. REVIEW OF SYSTEMS: As above in HPI. CONSTITUTIONAL: No fevers, chills. PULMONARY: No current shortness of breath. CARDIOVASCULAR: No current chest pain. GASTROINTESTINAL: No vomiting. GENITOURINARY: No hematuria. MUSCULOSKELETAL: Degenerative joint disease. PSYCHIATRIC: Patient denies depression. NEUROLOGIC: No documented CVA. ENDOCRINE: No documented diabetes mellitus. GYNECOLOGIC: Uterine prolapse status post repair. CARDIOVASCULAR: Bradycardic. PHYSICAL EXAMINATION: VITAL SIGNS: Temperature of 97.8, blood pressure most recently 120/65, pulse in the high 50s to low 60s. GENERAL: The patient is alert, awake, in no acute distress. NECK: JVP approximately 8 to 9 cm water. CHEST: Fair air movement throughout. HEART: Regular rate, regular rhythm, normal S1, S2, without systolic murmur, nondisplaced PMI. ABDOMEN: Positive bowel sounds, soft. EXTREMITIES: No pitting edema, 1+ pulses bilaterally, posterior tibial. LABORATORY DATA: As above in HPI, with most recent hemoglobin 11.1, platelet count 356. Sodium 140 , potassium 4.2, creatinine 0.7, BUN 10. IMAGING STUDIES: No imaging studies for my review at this time. ECG: Reveals marked sinus bradycardia at 45, borderline first degree AV block, normal axis, normal intervals with nonspecific ST-T wave abnormality and lateral T wave inversion. IMPRESSION: 1. Bradycardia consistent with sinus bradycardia at this time, improved with stopping of beta block er in a patient with a normal T4. 2. Hypertension under reasonable control, currently off of antihypertensives at this time. 3. Postoperative day #1, status post total vaginal hysterectomy and anterior repair. 4. Abnormal electrocardiogram with lateral T-wave inversions, but negative troponin and a 2D echo i nterpreted by myself the prior day with normal ejection fraction. 5. Diastolic dysfunction by echo with a regional volume status. RECOMMENDATIONS: 1. At this time, would check a followup EKG to assess for any significant changes and an additional troponin. The patient's EKG changes are chronic in nature and not due to any recent coronary syndr omes in the setting of surgery. 2. We will continue the patient's beta barbara. 3. Continue to follow the patient's blood pressure closely off of antihypertensives. We will marcellus nue all other routine postoperative care and additionally would check a fasting lipid panel for the patient's general risk stratification. Thank you for allowing me to take part in the care of this patient. I will continue to follow very closely with you with further recommendations to be made as patient progresses through her inpatient hospital clinical course. Dictated By: SAMMY LOZANO/JASWINDER Conf#: [id number] DID#: [id number] CC: HERIBERTO GRANDE MD;*End*
--- NOTE | 2016-12-24 00:01 | RADRPT ---
Vent Rate: 63 bpm RR Interval: 0 msec NE Interval: 202 msec QRS Duration: 86 msec QT Interval: 400 msec QTC Interval: 409 msec P-R-T [place]: 63 - 37 - 74 degrees Normal sinus rhythm Normal ECG Electronically Signed By: Juanito Lew [id number]
[2016-12-24] MEDS ORDERED: PANTOPRAZOLE (EC) 40 MG TAB PO SCH (06:00)
== END 2016-12-23 19:28 | disposition left against medical advice (07) | DRG 743 ==
LOC: INTOOBSV 05:56 → REC 05:56 → OBSVTOIN 10:11 → MS1 11:08 → TEL 14:30
PROVIDERS: ADMIT Specialist; ATTEND Specialist
PROC: 0JQC0ZZ Repair Pelvic Region Subcutaneous Tissue and Fascia, Open Approach (ICD-10-PCS; 2016-12-22)
PROC: 0UT97ZZ Resection of Uterus, Via Natural or Artificial Opening (ICD-10-PCS; principal; 2016-12-22 07:30)
PROC: 0UTC7ZZ Resection of Cervix, Via Natural or Artificial Opening (ICD-10-PCS; 2016-12-22 07:30)
DX: N81.3 Complete uterovaginal prolapse (principal); I10 Essential (primary) hypertension; R00.1 Bradycardia, unspecified; I44.0 Atrioventricular block, first degree; E03.9 Hypothyroidism, unspecified
CPT/HCPCS: 80048; 80053; 81003; 83735; 84100; 84436; 84479; 84484; 85025; 85610; 85730; 86850; 86900; 86901; 87086; 88305; 93005; 93306; 99217; C9113; G0378; J0690; J1100; J1170; J1650; J1885; J2250; J2274; J2405; J2710; J2765; J3010; J7120